=== PATIENT | male | born 1950 | race Caucasian/White ===

== ENCOUNTER 2017-02-02 11:59 | Emergency (ER) | payer BC ==
[~2017-02-02 11:59] MED LIST: ASAB PO; AVAP150 PO; COREG25 PO; COREG3 PO; DIABETA5 PO; FESO4 PO; GLUCPH PO; KLOR-CON M2020 MEQ PO; L80 PO; LIPITOR10 PO; PRIN2.5 PO; SANTYL250 MG/GM TOP; SPIRO25 PO; T PO; VICODINTAB PO; X5 PO
[2017-02-02 12:30] LABS: BASOPHILS 0.5 %; BASOPHILS ABSOLUTE 0.06 10/3/uL (0.0-0.16); EOSINOPHILS 4.1 %; EOSINOPHILS ABSOLUTE 0.53 10/3/uL (0.0-0.53); HEMOGLOBIN 12.1 g/dL (13.6-17.8); IMMATURE GRANULOCYTES 0.3 %; IMMATURE GRANULOCYTES ABSOLUTE 0.04 10/3/uL (0.0-0.11); LYMPHOCYTES 13.6 %; LYMPHOCYTES ABSOLUTE 1.74 10/3/uL (0.67-4.30); MEAN CORPUSCULAR HEMOGLOB 28.7 pg (26.0-34.0); MEAN PLATELET VOLUME 9.5 fL (9.2-13.0); MONOCYTES 7.9 %; MONOCYTES ABSOLUTE 1.01 10/3/uL (0.21-1.20); NEUTROPHILS 73.6 %; NEUTROPHILS ABSOLUTE 9.44 10/3/uL (2.02-8.40); PLATELET COUNT 268 10/3/uL (150-400); RBC DISTRIBUTION WIDTH 14.1 % (12.0-16.0); RED CELL COUNT 4.21 10/6/uL (4.7-6.1)
[2017-02-02 12:31] LABS: ER CBC TAT 0 Hrs 05 Mins; HEMATOCRIT 36.7 % (40.0-51.0); MANUAL DIFF NO %; MEAN CORPUSCULAR VOLUME 87.2 fL (80-100); WHITE BLOOD CELLS 12.8 10/3/uL (4.5-10.5)
[2017-02-02 12:37] LABS: INTERNATIONAL NORMAL RATI 1.2 UNITS (-); PARTIAL THROMBO TIME 28.7 SEC (22.5-37.2); PROTIME (NOT ORD) 14.8 SEC (12.0-14.5)
== END 2017-02-02 13:20 | disposition home or self-care (01) ==
LOC: ER 11:59
PROVIDERS: Physician Assistant Medical
DX: R04.0 Epistaxis (principal); E11.9 Type 2 diabetes mellitus without complications; Z88.0 Allergy status to penicillin; Z79.82 Long term (current) use of aspirin; Z79.84 Long term (current) use of oral hypoglycemic drugs; Z79.899 Other long term (current) drug therapy
CPT/HCPCS: 85025; 85610; 85730; 99283; A9270-GY